=== PATIENT | male | born 1970 | race Caucasian/White ===

== ENCOUNTER 2019-12-20 10:34 | Emergency (ER) | payer OTHER ==
[~2019-12-20] VITALS: Ht 170.2 cm; Wt 68.0 kg
[2019-12-20 10:40] VITALS: BP_SYST 113
[2019-12-20 13:18] VITALS: BP_SYST 113
== END 2019-12-20 13:15 | disposition home or self-care (01) ==
LOC: SED 10:34
DX: K42.9 Umbilical hernia without obstruction or gangrene (principal); K29.70 Gastritis, unspecified, without bleeding; R03.0 Elevated blood-pressure reading, without diagnosis of hypertension
CPT/HCPCS: 99284